=== PATIENT | male | born 1980 | race Two or more races ===

== ENCOUNTER 2024-12-18 22:23 | Emergency (ER) | payer OTHER, MEDICAID, SELFPAY ==
[2024-12-18 22:24] VITALS: BMI 33.5
[2024-12-18 22:46] VITALS: BP 131/76; PULSE 82; RESP 18; TEMP 36.7; O2SAT 96
--- NOTE | 2024-12-19 02:38 | PD.EDEYE ---
ED Eye Problem RME/HPI General Chief complaint: Eye Problems Stated complaint: SWELLING TO LEFT EYE Time Seen by Provider: 12/18/24 22:57 Arrival date/time: 12/18/24 22:23 44M with no significant PMH presents to ED with 1 month of intermittent bilateral eye swelling and itchiness (L>R). Patient has been getting steroids and antihistamines w/o relief. Patient has outpatient imaging pending. Limitations: no limitations Related Data Home Medications ?Medication ?Instructions ?Recorded ?Confirmed cetirizine 10 mg tablet 10 mg PO DAILY 05/20/24 05/21/24 fexofenadine 180 mg tablet 180 mg PO QDAY 05/20/24 05/21/24 Previous Rx's ?Medication ?Instructions ?Recorded docusate sodium 100 mg capsule 100 mg PO BID #40 caps 05/21/24 (Colace) hydrocodone 5 mg-acetaminophen 325 1 tab PO Q6H PRN pain (scale score 05/21/24 mg tablet 7-10) #20 tabs ibuprofen 600 mg tablet 600 mg PO Q8H PRN pain (scale 05/21/24 score 4-6) #15 tabs Allergies Allergy/AdvReac Type Severity Reaction Status Date / Time No Known Allergies Allergy Verified 05/21/24 09:36 Review of Systems Review of Systems Systems Reviewed: All systems reviewed, normal except as documented Constitutional Constitutional: Reports system reviewed and no additional complaints, except as documented, Denies fever(s) and Denies headache(s) Eyes Eyes: Reports as per HPI, Reports exophthalmos and Reports itchy eyes ENT Ears, Nose, Mouth, and Throat: Denies disequilibrium and Denies headache(s) Cardiovascular Cardiovascular: Reports system reviewed and no additional complaints, except as documented, Denies chest pain and Denies dyspnea Respiratory Respiratory: Reports system reviewed and no additional complaints, except as documented, Denies cough and Denies dyspnea Gastrointestinal Gastrointestinal: Reports system reviewed and no additional complaints, except as documented, Denies abdominal pain, Denies nausea and Denies vomiting Neurologic Neurologic: Reports system reviewed and no additional complaints, except as documented, Denies confusion, Denies disequilibrium and Denies headache(s) Psychiatric Psychiatric: Denies confusion Allergic/Immunologic Allergic/Immunologic: Reports itchy eyes Past Medical History Past Medical History NEUROLOGIC: Positive Neurological Disorders and Seizures (none in 5 yrs, no medications needed per patient) CARDIAC: Negative Cardiac Disorders or Congestive Heart Failure RESPIRATORY: Negative Chronic Obstructive Pulmonary Disease (COPD) or Asthma GASTROINTESTINAL: Negative Gastrointestinal Disorders GENITOURINARY: Positive Genitourinary Disorders and Inguinal Hernia; Negative Renal Disease MUSCULOSKELETAL: Negative Musculoskeletal Disorders ENT: Negative Cataracts ENDOCRINE: Negative Endocrine Disorders, Diabetes Mellitus Type 1 or Diabetes Mellitus Type 2 HEMATOLOGIC: Negative Blood Disorders or Sickle Cell Disease OTHER HISTORY: Positive Chicken Pox; Negative Hospitalization, Autoimmune Disease, Shingles, Blood Transfusions, Blood Transfusion Reaction, Anesthesia Reactions or Cancer Family History FAMILY HISTORY: Positive Family Cancer and Family Surgery; Negative Family Psychiatric Problems, Family Respiratory Disorders, Family Cardiac Disorders, Family Gastrointestinal Problems or Family Anesthesia Reaction Social History SMOKING STATUS: Never smoker SUBSTANCE USE: marijuana (Daily) ED Exam General Limitations: Present no limitations General appearance: Present alert and in no apparent distress Head Head exam: Present atraumatic Eye Eye exam: Present PERRL, conjunctival injection and other (exophthalmos) ENT ENT exam: Present normal exam, normal oropharynx and mucous membranes moist Neck Neck exam: Present normal inspection, full ROM and trachea midline Chest Chest inspection: Present normal inspection and symmetric chest wall rise Respiratory Respiratory exam: Present normal lung sounds bilaterally Cardiovascular Cardiovascular exam: Present regular rate, normal rhythm and normal heart sounds Abdominal Exam Abdominal exam: Present soft and normal bowel sounds Extremities Exam Extremities exam: Present normal inspection and full ROM Back Exam Back exam: Present normal inspection and full ROM Neurological Exam Neurological exam: Present alert, oriented X3 and CN II-XII intact Psychiatric Psychiatric exam: Present normal affect and normal mood Skin Skin exam: Present warm, dry, intact and normal color Course Quality Measures none Vital Signs Vital signs: Vital Signs Temperature 98.0 F 12/18/24 22:46 Pulse Rate 82 12/18/24 22:46 Respiratory Rate 18 12/18/24 22:46 Blood Pressure 131/76 H 12/18/24 22:46 Pulse Oximetry (%) 96 12/18/24 22:46 Oxygen Delivery Method Room Air 12/18/24 22:46 O2 at 96% on RA and WNLs Eye MDM Narrative MDM Narrative:: 44M with no significant PMH presents to ED with 1 month of intermittent bilateral eye swelling and itchiness (L>R). Patient has been getting steroids and antihistamines w/o relief. Patient has outpatient imaging pending. Physical exam reveals bilateral exophthalmos (L>R). Conjunctivitis, but no discharge. Normal pupil response. EOM mostly intact except for mild L upper and lower crooks. No eye/eyelid tenderness, redness, or swelling. Patient is a febrile, calm, and alert. Unknown cause of exophthalmos. Patient does not want to do wait to do work-up here and that he will follow-up with PCP. 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 Patient data External records reviewed:: [facility] previous records Clinical information provided by:: patient Social determinants that could affect healthcare access:: none Patient has the following chronic illnesses:: none How is presenting disease/condition affected by chronic disease/condition?: no chronic disease Evaluation data The following diagnostics were reviewed and interpreted by me:: other (specify) (none) Lab and/or radiology exams considered but not ordered:: not ordered Interpretation Summary: n/a Medications / Prescriptions Medications or Prescriptions considered but not ordered:: not ordered Medication administrations:: n/a Consultations Consultation(s) initiated? (list below): No Diagnosis Eye Problem Differential Diagnosis: corneal abrasion, conjunctivitis, acute iritis, hyphema, periorbital cellulitis, subconjunctival hemorrhage, glaucoma, corneal ulcer, ruptured globe and other (exophthalmos ) Most likely diagnosis given after review of the tests above:: exophthalmos Admission Indicated Admission indicated?: not indicated Admission Request Was there a request for admission?: No Disposition Plan Disposition Plan: Discharge Discharge Attestation Discharge Attestation: The patient and all family members were given an opportunity to ask questions and understood the discharge instructions. Discharge instructions specifically effects, indications for sooner follow up or return to the emergency department, and the expected course of current diagnosis. Patient condition: Stable Discharge Plan Plan Patient Disposition: HOME (Self Care) Disposition Comment: Stable Prescriptions/Referrals Prescriptions/Med Rec: No Action cetirizine 10 mg tablet 10 mg PO DAILY Patient Comments: TAKE 1 TABLET BY MOUTH EVERY DAY FOR 30 DAYS fexofenadine 180 mg Tablet 180 mg PO QDAY docusate sodium [Colace] 100 mg capsule 100 mg PO BID Qty: 40 0RF ibuprofen 600 mg tablet 600 mg PO Q8H PRN (Reason: pain (scale score 4-6)) Qty: 15 0RF hydrocodone-acetaminophen 5-325 mg tablet 1 tab PO Q6H MDD 4 PRN (Reason: pain (scale score 7-10)) Qty: 20 0RF Problem List Clinical Impression: Exophthalmos Patient/Caregiver Discharge Instructions Additional Instructions: Please follow-up with PCP within 24-48 hours and return immediately if symptoms worsen. Can ask PCP about additional evaluation including possible thyroid work-up and/or CT/MRI w/ contrast to r/o other etiologies. Print Language: Kittitian Stand Alone Forms: Patient Portal Info Letter PA/QUALITY CONTROL TESTER Supervising Physician [id number]/PEARL Supervising Physician: Dr. Maloney
== END 2024-12-18 23:26 | disposition home or self-care (01) ==
LOC: SERX 23:05
PROVIDERS: Emergency Provider Emergency Medicine; PCP Family Medicine
DX: H05.20 Unspecified exophthalmos (principal)
CPT/HCPCS: 99281